=== PATIENT | female | born 1970 | race Caucasian/White ===

== ENCOUNTER → 2016-12-29 | Outpatient (CLI) | payer BC ==
--- NOTE | 2016-12-30 13:10 | RADIOLOGY REPORT PS360 ---
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 There is Grade 2 , 11-12 mm anterior listhesis of L5 on S1. There is also mild disc space narrowing L5/S1 also noted. Minor facet arthropathy L4/5 disc intact L3/4 disc intact. Borderline narrowing at L2/3. Pedicles transverse processes SI joints satisfactory.. 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
== END ==
LOC: RAD 17:39
DX: M54.5 Low back pain (principal)